=== PATIENT | female | born 1960 | race Caucasian/White ===

== ENCOUNTER 2024-08-21 11:24 | Oncology outpatient (recurring) (ONCR) | payer MEDICARE, SELFPAY ==
--- NOTE | 2024-08-04 14:16 | N.ONRAD NP_ITS ---
Radiation Oncology New Patient Visit Patient: Nieves Castañeda MR#: [id number] : 1960 Age: 64 Sex: Female Dictated by: Dr. Erika Spivey Date of Service: 08/04/2024 Referring Physician(s) : Dr. Doyle Diagnosis: C44.311 - basal cell carcinoma of skin of nose, Diagnosed 08/04/2024 (active). Radiotherapy to date: Summary > No prior radiation therapy. Chief Complaint / History of Present Illness: Ms. Castañeda is a 64-year-old lady who is just had her for skin cancer diagnosed. She noticed a spot on her nose that it come up on the tip as well as 1 on the nasal ala on the left side. These were both biopsy positive for nodular basal cell carcinoma. She was given the option of surgical resection or radiation. After discussing the possibilities of the amount of tissue that had to be removed she elected to proceed with a consultation here today to discuss the radiation option. Current Medications: Albuterol, amlodipine, bumetamide, femofibrate, lortidine potassium one half of asa Allergies: None Medical History: No history of collagen vascular disease. No previous radiation therapy. Hypertension, stage III chronic liver and kidney disease, hypercholesteremia, COPD Surgical History: None Family History: noncontributory Social History: She lives with her . She does not drive. Current Complaints / Review of Systems: . She has no generalized complaints. All pertinent are negative negatives Vital Signs: Performed on 08/04/2024 1:49 PM BMI - 36.356 kg/m2 (high), Height - 64 in, Weight - 211.8 lbs, Temperature - 97.8 f, Pulse - 68 /min, Respiration - 18 /min, O2 Sat - 97 %, Pain - 0, Fatigue - 0 and BP - 173/ 97 mm(hg)(high). Physical Exam: General: Patient is in no apparent distress today. She is accompanied by her HEENT normocephalic atraumatic. Pupils are equal, sclera clear, extraocular muscles intact. Skin: Examination of her face reveals that she has a small divot area at the tip of her nose. It measures approximately 3 mm. She also has a lesion along the left nasal ala that measures about 3 to 4 mm. No other gross abnormalities were noted. Pulmonary: Respiratory rate is regular nonlabored Cardiovascular: Regular rate and rhythm Abdomen: Mildly protuberant android pattern Extremities: Without obvious edema or lymphedema Neurological: Alert and orient x 3. Gait and speech within normal limits Psych: Patient is quite stressed and anxious today. Performance Status: 100 Pathology: Primary, c44.311 - basal cell carcinoma of skin of nose, Diagnosed 08/04/2024 (active) . Lab: Imaging: See HPI Impression: Basal cell carcinoma of the nose Plan: I reviewed with Mrs. Castañeda and her the role of radiation and skin cancer. We talked about how generally if a skin cancer is located around the eye around the nose or around the mouth the radiation is usually the better option. We talked about how surgically a significant amount of tissue can result in a fairly significant cosmetic defect. I reviewed with her that the fact that we are offering radiation as a treatment option did not mean that her cancer was any more serious it was just a different tool to use than surgery. We talked about how basal cell carcinomas will most often stay right where they are and do not spread. In 35 years I have only had 2 patients that have had basal cell carcinomas spread to lymph nodes. We reviewed the simulation process. We discussed the daily treatment regiment. We reviewed the risks and side effects both acute and long-term. She is somewhat concerned about any long-term changes to the skin. I recommended to her that because of this we need to be careful and protractor treatment with 3 treatments a week for several weeks. This will give us the best control in terms of the cancer and the best outcome in terms of the texture and color of the skin. Secondary to her 's work schedule she will come 3 days a week Saturday. At this point she will be back on to undergo simulation and will begin her treatment shortly thereafter. Signed by: 08/04/2024 2:15:16 PM <<Signature on File>> Time spent with patient:45 CPT Code: CPT Code:
== END 2024-08-25 23:59 | disposition home or self-care (01) ==
PROVIDERS: Visit Provider Radiology Radiation Oncology
DX: Z51.0 Encounter for antineoplastic radiation therapy (principal); C44.311 Basal cell carcinoma of skin of nose
CPT/HCPCS: 77280; 77290; 77295; 77300; 77334; 77412; 99205

== ENCOUNTER 2024-09-23 12:48 | Oncology outpatient (recurring) (ONCR) | payer MEDICARE, SELFPAY ==
--- NOTE | 2024-09-01 13:32 | ONCRAD TMN_ITS ---
Radiation Oncology Weekly Treatment Management Patient: Maddy Pickett> MR#: [id number] : 1960> Attending Physician: Dr. Erika Spivey Date of Service: 09/01/2024 Fractions: 5 out of 18 Referring Physician(s) : Diagnosis: C44.311 - Basal cell carcinoma of skin of nose, Diagnosed 08/04/2024 (Active) Radiotherapy to date: Course: nose, Treatment Site: E Beam En Fac, Ref. ID: [id number], Energy: 6E, Dose/Fx (cGy): 250, #Fx: 5 / 18, Dose Correction (cGy): 0, Total Dose Delivered (cGy): 1,250, Start Date: 08/20/2024, Elapsed Days: 12 Reason for visit: The patient is being seen today as part of their regularly scheduled weekly on treatment visits to assess for acute toxicities from radiotherapy. Review of Systems: Patient feels like the skin is feeling in from the surgery. She is notes no other changes. She did have a little bit of blood when she blew her nose this morning. Vital Signs: Performed on 09/01/2024 1:05 PM BMI - 36.287 kg/m2 (high), Height - 64 in, Weight - 211.4 lbs, Temperature - 98.3 f, Pulse - 72 /min, Respiration - 18 /min, O2 Sat - 97 %, Pain - 0, Fatigue - 0 and BP - 171/ 81 mm(hg)(high/). Physical Exam: No changes on exam Imaging: Radiation therapy imaging related to accurate target localization (i.e. KV, MV and CBCT) was reviewed. Appropriate changes, if any, were made to ensure treatment accuracy. Plan: Will continue with treatments as planned. I did give her samples of her to for skin to use twice a day. I have also asked her to use triple antibiotic up in the nares when she starts having any bleeding. Signed by: Dr. Erika Spivey 09/01/2024 1:32:12 PM
--- NOTE | 2024-09-08 13:24 | ONCRAD TMN_ITS ---
Radiation Oncology Weekly Treatment Management Patient: Nieves Castañeda MR#: [id number] : 1960 Attending Physician: Dr. Erika Spivey Date of Service: 09/08/2024 Fractions: 8 out of 18 Referring Physician(s) : Diagnosis: C44.311 - Basal cell carcinoma of skin of nose, Diagnosed 08/04/2024 (Active) Radiotherapy to date: Course: nose, Treatment Site: E Beam En Fac, Ref. ID: [id number], Energy: 6E, Dose/Fx (cGy): 250, #Fx: 8 / 18, Dose Correction (cGy): 0, Total Dose Delivered (cGy): 2,000, Start Date: 08/20/2024, Elapsed Days: 19 Reason for visit: The patient is being seen today as part of their regularly scheduled weekly on treatment visits to assess for acute toxicities from radiotherapy. Review of Systems: Patient says her nose continues to bleed when she blows it. She is cleaning out regularly and then using the triple antibiotic ointment on it. She did have a spell last week on Saturday where she ran a low-grade fever and she just went to bed. The next day she was normal. Vital Signs: Performed on 09/08/2024 12:56 PM BMI - 36.459 kg/m2 (high), Height - 64 in, Weight - 212.4 lbs, Temperature - 97.4 f, Pulse - 78 /min, Respiration - 16 /min, O2 Sat - 98 %, Pain - 0, Fatigue - 0 and BP - 153/ 94 mm(hg)(high). Physical Exam: On exam the skin is just mildly erythematous across the tip of her nose Imaging: Radiation therapy imaging related to accurate target localization (i.e. KV, MV and CBCT) was reviewed. Appropriate changes, if any, were made to ensure treatment accuracy. Plan: Will continue with her treatments as planned. Signed by: Dr. Erika Spivey 09/08/2024 1:23:10 PM
--- NOTE | 2024-09-15 13:28 | ONCRAD TMN_ITS ---
Radiation Oncology Weekly Treatment Management Patient: Maddy Pickett> MR#: [id number] : 1960> Attending Physician: Dr. Erika Spivey Date of Service: 09/15/2024 Fractions: 12 out of 18 Referring Physician(s) : Diagnosis: C44.311 - Basal cell carcinoma of skin of nose, Diagnosed 08/04/2024 (Active) Radiotherapy to date: Course: nose, Treatment Site: E Beam En Fac, Ref. ID: [id number], Energy: 6E, Dose/Fx (cGy): 250, #Fx: , Dose Correction (cGy): 0, Total Dose Delivered (cGy): 3,000, Start Date: 08/20/2024, Elapsed Days: Reason for visit: The patient is being seen today as part of their regularly scheduled weekly on treatment visits to assess for acute toxicities from radiotherapy. Review of Systems: Patient still having a little bit of bleeding from her nose. She takes half an aspirin a day. Vital Signs: Physical Exam: Her skin is just mildly erythematous. Imaging: Radiation therapy imaging related to accurate target localization (i.e. KV, MV and CBCT) was reviewed. Appropriate changes, if any, were made to ensure treatment accuracy. Plan: Will continue with her treatments as planned. She will continue with her skin protocol. Signed by: Dr. Erika Spivey 09/15/2024 1:46:19 PM
--- NOTE | 2024-09-22 15:09 | ONCRAD TMN_ITS ---
Radiation Oncology Weekly Treatment Management Patient: Maddy Yao MR#: [id number] : 1960> Attending Physician: Dr. Erika Spivey Date of Service: 09/22/2024 fractions: 16 out of 18 Referring Physician(s) : Diagnosis: C44.311 - Basal cell carcinoma of skin of nose, Diagnosed 08/04/2024 (Active) Radiotherapy to date: Course: nose, Treatment Site: E Beam En Fac, Ref. ID: [id number], Energy: 6E, Dose/Fx (cGy): 250, #Fx: 16 / 18, Dose Correction (cGy): 0, Total Dose Delivered (cGy): 4,000, Start Date: 08/20/2024, Elapsed Days: 33 Reason for visit: The patient is being seen today as part of their regularly scheduled weekly on treatment visits to assess for acute toxicities from radiotherapy. Review of Systems: Patient continues to have some rawness in the internal nares Vital Signs: Performed on 09/22/2024 12:56 PM BMI - 36.562 kg/m2 (high), Height - 64 in, Weight - 213 lbs, Temperature - 97.0 f, Pulse - 65 /min, Respiration - 18 /min, O2 Sat - 96 %, Pain - 0, Fatigue - 0 and BP - 173/ 95 mm(hg)(high). Physical Exam: On exam the skin is erythematous but there is no dryness or moist desquamation Imaging: Radiation therapy imaging related to accurate target localization (i.e. KV, MV and CBCT) was reviewed. Appropriate changes, if any, were made to ensure treatment accuracy. Plan: Will continue with her treatments. She will be finished in 2 days. Signed by: Dr. Erika Spivey 09/22/2024 3:07:10 PM
--- NOTE | 2024-09-24 13:37 | N.ONRD TS_ITS ---
Radiation Oncology Treatment Summary Patient: Nieves Castañeda MR#: [id number] : 1960 Age: 64 Sex: Female Dictated by: Dr. Erika Spivey Date of Service: 09/24/2024 Referring Physician(s) : Diagnosis: C44.311 - Basal cell carcinoma of skin of nose, Diagnosed 08/04/2024 (Active) Radiotherapy to Date: Course: nose, Treatment Site: E Beam En Fac, Ref. ID: [id number], Energy: 6E, Dose/Fx (cGy): 250, #Fx: 18 / 18, Dose Correction (cGy): 0, Total Dose Delivered (cGy): 4,500, Start Date: 08/20/2024, End Date: 09/24/2024, Elapsed Days: 35 Clinical Summary: The patient tolerated RT well. Patient had a mild to moderate skin reaction with erythema but no dry or moist desquamation Plan: End of treatment today. Continue on the above medication until the skin reaction resolves. Follow up in one month. Signed by: Dr. Erika Spivey>09/24/2024 1:35:47 PM <<Signature on File>>
== END 2024-09-25 23:59 | disposition home or self-care (01) ==
PROVIDERS: Visit Provider Radiology Radiation Oncology
DX: Z51.0 Encounter for antineoplastic radiation therapy (principal); C44.311 Basal cell carcinoma of skin of nose
CPT/HCPCS: 77336; 77412; 99024

== ENCOUNTER 2024-10-22 13:32 | Oncology outpatient (recurring) (ONCR) | payer BC, SELFPAY ==
--- NOTE | 2024-10-22 14:02 | ONCRAD EPV_ITS ---
Radiation Oncology Established Patient Visit Patient: Nieves Castañeda [id number] : 1960 Age: 64 Sex: Female Dictated by: Daniel Mei DO/MALAIKA/DONA Date of Service: 10/22/2024 Referring Physician(s) : Diagnosis: C44.311 - Basal cell carcinoma of skin of nose, Diagnosed 08/04/2024 (Active) Radiotherapy to Date: Course: nose, Treatment Site: E Beam En Fac, Ref. ID: [id number], Energy: 6E, Dose/Fx (cGy): 250, #Fx: 18, Dose Correction (cGy): 0, Total Dose Delivered (cGy): 4,500, Start Date: 08/20/2024, End Date: 09/24/2024, Elapsed Days: 35 Current History: This is a pleasant 64-year-old female 1 month status post treatment to BCC of the tip of the nose. She is well-healed at this time. She underwent a total dose 4500 cGy in 18 fractions completing this on 09/24/2024. Patient continues to use creams as needed. Current Medications: Per [employer] Allergies: Per [employer] Current Complaints / Review of Systems: As noted above Vital Signs: Performed on 10/22/2024 1:44 PM BMI - 36.184 kg/m2 (high), Height - 64 in, Weight - 210.8 lbs, Temperature - 97.6 f, Pulse - 70 /min, Respiration - 16 /min, O2 Sat - 97 %, Pain - 0, Fatigue - 0 and BP - 163/ 81 mm(hg)(high/). Physical Exam: General: Alert and oriented x 3. No acute distress. HEENT: Normocephalic, atraumatic. Extraocular Movements Intact: Pupils Equal, Round, Reactive to Light and Accommodation: Sclerae anicteric. Oral cavity is clear without lesions, masses or ulcers. Nose well-healed with no skin breakdown NECK: Supple without supraclavicular or jugular lymphadenopathy. LUNGS: Clear to auscultation bilaterally without rales, rhonchi or wheeze. HEART: Regular rate and rhythm, normal S1 and S2 without murmur, gallop or rub. MUSCULOSKELETAL: No tenderness or percussion pain over the axial skeleton, scapulae or pelvis. ABDOMEN: Soft, nontender, nondistended without masses or organomegaly. Bowell sounds are present. EXTREMITIES: No peripheral edema is identified. Limited motor and sensory examination are grossly intact and symmetric bilaterally. NEUROLOGIC: Cranial nerves II ???XII are grossly intact. Normal sensation, strength 5/5 in all extremities, normal gait, no ataxia. Performance Status: KPS 90 Lab: None pending. Pathology: Primary, c44.311 - basal cell carcinoma of skin of nose, Diagnosed 08/04/2024 (active) . Imaging: See HPI Impression: Patient tolerated treatment well. Good response to XRT Patient will follow-up with her family doctors due to proximity. She will return as needed to us. Signed by: 10/22/2024 2:01:24 PM <<Signature on File>> Time spent with patient: CPT Code: * CPT Code: *
== END 2024-10-23 23:59 | disposition home or self-care (01) ==
PROVIDERS: Visit Provider Radiology Radiation Oncology
DX: Z51.0 Encounter for antineoplastic radiation therapy (principal); C44.311 Basal cell carcinoma of skin of nose
CPT/HCPCS: 99024